=== PATIENT | female | born 1990 | race Caucasian/White ===

== ENCOUNTER → 2020-08-09 | Outpatient (CLI) | payer MEDICAID ==
[2020-08-09 12:24] LABS: C-REACTIVE PROTEIN 6.7 mg/L (<10.0)
== END ==
LOC: OD 11:27
PROVIDERS: ATTEND Family Medicine
DX: M25.50 Pain in unspecified joint (principal)
CPT/HCPCS: 36415; 85652; 86038; 86140; 86431